=== PATIENT | male | born 1950 | race Caucasian/White ===

== ENCOUNTER → 2016-05-01 | Day surgery (SDC) | payer OTHER ==
[~2016-05-01] MED LIST: AMLODIPINE BESY10 MG PO; HUMIRA SUBQ; HYDROCHLOROTHIA25 MG PO; LANTUS SOLOSTAR3 ML SUBQ; LIPITOR20 MG PO; LOPRESSOR PO; LOSARTAN POTAS100 MG PO; METFORMIN HCL500 M1 PO
--- NOTE | ~2016-05-01 | OR ---
Unit #: [id number] #: [id number] Patient: KLEVER GUPTA [id number] [address] [place], [place] [address] [id number] MR#: [id number] NAME: KLEVER GUPTA ROOM: Date of Procedure: 05/01/2016 Admission Date: 05/01/2016 Surgeon: Messi Villa Jr., M.D. : 1950 Attending Physician: Messi Villa Jr., M.D. Primary Care Physician: Efra Good M.D. OPERATIVE REPORT JOB NOTE: CC: DR. GOOD INDICATIONS FOR PROCEDURE The patient is a 65-year-old white male, who presents desiring screening colonoscopy. He has had no previous scope. According to him, he has had no change in bowel habits and no other problems. He has had his prep at home. He understands the procedure including the risks, including that of perforation and bleeding, and consents. PREOPERATIVE DIAGNOSIS Desired screening colonoscopy, rule out pathology. POSTOPERATIVE DIAGNOSIS Diverticulosis of left colon with multiple small polyps of the sigmoid and descending colon. The prep was only fair. ANESTHESIA MAC anesthesia. PROCEDURE PERFORMED Flexible colonoscopy to the cecum with snare polypectomy of 2 polyps in the proximal distal sigmoid and cold biopsy forceps biopsies of 2 polyps in the descending colon. DESCRIPTION OF PROCEDURE The patient was positioned in Jacobs position with left side down. After being given MAC anesthesia, digital rectal examination was performed, which revealed no palpable mass or tenderness. No blood or stool within the rectal ampulla. The prostate was normal by palpation. The Olympus colonoscope was advanced through the anal canal up the rectum and retroflexed down to the area of the anorectal region. There was no evidence of any fissures and no significant internal hemorrhoids. The scope was then straightened and advanced up in the rectosigmoid, in the sigmoid and at approximately 25 cm, there was small pedunculated polyp which was snared at its base and suctioned out through the suction port and sent to pathology. The base was well coagulated with no evidence of any bleeding or perforation or extensive burn. The scope was then advanced up into the proximal sigmoid and at approximately 45 cm, there was additional 2 to 3 mm polyp, which was snared and suctioned up against the scope and brought out with the scope. It was also sent to pathology. The scope was then advanced back up in the area of the base of both these polyps with no evidence of any bleeding or perforation or extensive burn. Unit #: [id number] #: [id number] Patient: KLEVER GUPTA There were several diverticula in the sigmoid and descending colon areas. The scope was then advanced up in the descending colon and there were 2 small polyps in this area. There were 1 or 2 mm in diameter. These were removed with 1 bite to 2 bites with the cold biopsy forceps. No evidence of any bleeding from these biopsies. The scope was then advanced around the splenic flexure and the transverse colon, around hepatic flexure and ascending colon down in the area of the cecum. The light from the tip of the scope could be seen transilluminating through right lower quadrant abdominal wall area. Multiple attempts advancing the scope up the distal ileum were unsuccessful. There was liquid stool throughout the entire length of the colon compatible with only a fair prep. The scope was slowly removed. There were no other polyps noted, but these could have been obscured from the poor prep. No evidence of any tumors, cancer, or AVMs. No evidence of any colitis or acute diverticulitis. The caliber of the colon appeared normal throughout. The scope was removed. The patient tolerated the procedure well and discharged in satisfactory condition. Dictated by... Messi Villa Jr., MSummer. MELLY/juliet TD: 05/01/2016 21:51 JOB #: [id number] OPERATIVE REPORT X Messi Villa MD X PROCEDURE OPERATIVE NOTE
== END | disposition home or self-care (01) ==
LOC: COPS 05:54
DX: Z12.11 Encounter for screening for malignant neoplasm of colon (principal); D12.5 Benign neoplasm of sigmoid colon; D12.4 Benign neoplasm of descending colon; K57.30 Diverticulosis of large intestine without perforation or abscess without bleeding; E11.9 Type 2 diabetes mellitus without complications; I10 Essential (primary) hypertension; E78.5 Hyperlipidemia, unspecified; Z79.84 Long term (current) use of oral hypoglycemic drugs; Z79.4 Long term (current) use of insulin; G47.30 Sleep apnea, unspecified
CPT/HCPCS: 82947; 88305; J3490